=== PATIENT | male | born 1995 | race Caucasian/White ===

== ENCOUNTER 2022-06-11 09:22 | Outpatient (CLI) | payer SELFPAY ==
[2022-06-11 15:25] LABS: Chloride* 103 mmol/L (96-114); Potassium* 4.3 mmol/L (3.6-5.1); Sodium* 138 mmol/L (135-149)
[2022-06-11 15:28] LABS: Blood Urea Nitrogen* 15 mg/dL (5-24); Carbon Dioxide* 27 mmol/L (20-32); Cholesterol* 190 mg/dL (90-199); Creatinine* 0.8 mg/dL (0.5-1.5); Estimated Glomerular Filt Rate 124 ml/min; Glucose* 99 mg/dL (60-115); Triglycerides* 102 mg/dL (40-149)
[2022-06-11 15:29] LABS: Calcium* 9.5 mg/dL (8.4-10.6); HDL Cholesterol* 57 mg/dL (>=40); LDL Cholesterol Calculated 113 mg/dL (<100)
== END 2022-06-11 09:23 | disposition home or self-care (01) ==
PROVIDERS: PCP Family Medicine; Visit Provider Family Medicine
DX: Z00.00 Encounter for general adult medical examination without abnormal findings (principal); F32.A Depression, unspecified; F41.9 Anxiety disorder, unspecified; Z13.6 Encounter for screening for cardiovascular disorders
CPT/HCPCS: 80048; 80061

== ENCOUNTER 2023-03-07 16:22 | Outpatient (CLI) | payer SELFPAY | END 2023-03-07 16:23 | disposition home or self-care (01) | LOC: LKVREF 16:23 | PROVIDERS: PCP Family Medicine; Visit Provider Registered Nurse | DX: N50.82 Scrotal pain (principal); Z11.3 Encounter for screening for infections with a predominantly sexual mode of transmission | CPT/HCPCS: 87491; 87591 ==

== ENCOUNTER 2023-03-26 11:06 | Outpatient (CLI) | payer SELFPAY | END 2023-03-26 11:07 | disposition home or self-care (01) | PROVIDERS: PCP Family Medicine; Visit Provider Family Medicine | DX: Z00.00 Encounter for general adult medical examination without abnormal findings (principal); R53.83 Other fatigue | CPT/HCPCS: 84443 ==

== ENCOUNTER 2023-06-18 16:27 | Outpatient (CLI) | payer SELFPAY | END 2023-06-18 16:28 | disposition home or self-care (01) | LOC: LKVREF 16:28 | PROVIDERS: PCP Family Medicine; Visit Provider Family Medicine | DX: R10.9 Unspecified abdominal pain (principal) | CPT/HCPCS: 87338 ==

== ENCOUNTER 2023-06-20 19:36 | Outpatient (CLI) | payer SELFPAY | END 2023-06-20 19:37 | disposition home or self-care (01) | LOC: LKVREF 19:37 | PROVIDERS: PCP Family Medicine; Visit Provider Physician Assistant | DX: R10.9 Unspecified abdominal pain (principal) | CPT/HCPCS: 87086 ==

== ENCOUNTER 2023-09-20 08:27 | Outpatient (CLI) | payer OTHER, SELFPAY | END 2023-09-20 08:28 | disposition home or self-care (01) | LOC: LKVREF 08:34 | PROVIDERS: PCP Family Medicine; Visit Provider Family Medicine | DX: Z00.00 Encounter for general adult medical examination without abnormal findings (principal); R53.83 Other fatigue; R30.0 Dysuria; R10.9 Unspecified abdominal pain | CPT/HCPCS: 80053; 87086 ==

== ENCOUNTER 2024-04-03 11:09 | Outpatient (CLI) | payer MEDICAID, SELFPAY | END 2024-04-03 11:10 | disposition home or self-care (01) | PROVIDERS: PCP Family Medicine; Visit Provider Family Medicine | DX: R53.83 Other fatigue (principal); B96.81 Helicobacter pylori [H. pylori] as the cause of diseases classified elsewhere; K21.9 Gastro-esophageal reflux disease without esophagitis; R10.9 Unspecified abdominal pain | CPT/HCPCS: 80053; 87338 ==

== ENCOUNTER 2024-04-10 13:00 | Outpatient (CLI) | payer MEDICAID, SELFPAY | END 2024-04-10 13:01 | disposition home or self-care (01) | LOC: NFLDREF 04-13 13:14 | PROVIDERS: PCP Family Medicine; Referring Provider Family Medicine; Visit Provider Family Medicine | DX: R10.9 Unspecified abdominal pain (principal); K29.70 Gastritis, unspecified, without bleeding; B96.81 Helicobacter pylori [H. pylori] as the cause of diseases classified elsewhere; K21.9 Gastro-esophageal reflux disease without esophagitis; R53.83 Other fatigue | CPT/HCPCS: 87338 ==

== ENCOUNTER 2024-08-18 08:06 | Outpatient (CLI) | payer MEDICAID, SELFPAY | END 2024-08-18 08:07 | disposition home or self-care (01) | PROVIDERS: PCP Family Medicine; Visit Provider Family Medicine | DX: R10.9 Unspecified abdominal pain (principal); R53.83 Other fatigue; Z13.29 Encounter for screening for other suspected endocrine disorder; Z11.4 Encounter for screening for human immunodeficiency virus [HIV]; Z11.59 Encounter for screening for other viral diseases; Z11.3 Encounter for screening for infections with a predominantly sexual mode of transmission | CPT/HCPCS: 80053; 80061; 84443; 86592; 86703; 86803; 87340 ==

== ENCOUNTER 2024-09-18 08:46 | Outpatient (CLI) | payer MEDICAID, SELFPAY | END 2024-09-18 08:47 | disposition home or self-care (01) | PROVIDERS: PCP Family Medicine; Visit Provider Family Medicine | DX: E78.5 Hyperlipidemia, unspecified (principal); R79.89 Other specified abnormal findings of blood chemistry | CPT/HCPCS: 80061; 80076; 82306 ==